=== PATIENT | female | born 1980 | race Caucasian/White ===

== ENCOUNTER 2018-02-06 08:17 | Inpatient (IN) | payer BC, OTHER ==
[2018-01-31 12:53] VITALS: BMI 43.2
[2018-02-06] MEDS ORDERED: CITRIC ACID-SODIUM CITRATE 15 ML CUP PO ONE (08:37)
[2018-02-06] MEDS: LACTATED RINGERS 1,000 ML IV SCH ×2 (09:00→15:00)
[2018-02-06 09:06] LABS: Basophils % (A) 0 %; Eosinophils # (A) 0.1 k/uL (0-0.7); Eosinophils % (A) 2 %; HCT 42.9 % (34.0-46.0); HGB 13.9 gm/dL (11.4-16.0); Lymphocytes # (A) 1.2 k/uL (1.0-4.8); Lymphocytes % (A) 18 %; MCH 30.7 pg (25.0-35.0); MCHC 32.5 g/dL (31.0-37.0); MCV 94.2 fL (80.0-100.0); Mean Platelet Volume 8.1; Monocytes # (A) 0.4 k/uL (0-1.0); Monocytes % (A) 5 %; Neutrophils # (A) 5.1 k/uL (1.3-7.7); Neutrophils % (A) 74 %; Platelet Count 211 k/uL (150-450); RBC 4.55 m/uL (3.80-5.40)
[2018-02-06] MEDS ORDERED: ceFAZolin 3 GM in SODIUM CHLORIDE 0.9% 100 ML IVPB ONE (09:28)
--- NOTE | 2018-02-06 09:38 | P.HPOB ---
History of Present Illness H&P Date: 02/06/18 Chief Complaint: Here for repeat and tubal ligation This is a 37-year-old white female 2 para 1001 EDC 02/12/2018 at 39 and one sevenths weeks' gestation. Patient presents today for repeat low transverse section, also requesting tubal ligation. She has had no HSV outbreaks on the perineal body. Fetus is been active throughout the . She denies vaginal bleeding or fluid leakage. Past medical history is significant for HSV infection, no other medical issues. Past surgical history wisdom teeth extracted in the past, section for failure to progress 2011. Current medications vitamins daily. ALLERGIES amoxicillin to which reports a rash as a teenager, no shortness of breath her airways issues. Family history significant for hypertension in the patient's father, diabetes in grandparents. Social history patient is , her 's name is Chuy. She is a former cigarette smoker, no smoking during . Occasional alcohol, she denies drug use. history blood type is B+, rubella status immune. Urine culture, gonorrhea and chlamydia cultures, hepatitis B surface antigen, HIV testing, VDRL testing all negative. Group B strep cultures negative. One-hour Glucola 95. On exam this is a pleasant white female, 5 foot 5 inches, 260 pounds, vital signs are stable and she is afebrile. The general physical exam is within normal limits. Extremities reveal no edema. Chest is clear to auscultation in all paz. Mild irregular contractions are graphing, not palpated by the patient. heart rate is consistent with reactive NST. Impression: 39 and one sevenths weeks intrauterine , advanced maternal age, history of HSV with no outbreaks currently, requesting tubal sterilization , previous section declining . Plan: We will proceed with low transverse section and tubal ligation. All questions answered. Review of Systems Constitutional: Reports as per HPI Past Medical History Past Medical History: No Reported History History of Any Multi-Drug Resistant Organisms: None Reported Past Surgical History: Section Past Anesthesia/Blood Transfusion Reactions: No Reported Reaction Past Psychological History: No Psychological Hx Reported Smoking Status: Former smoker Past Alcohol Use History: None Reported Additional Past Alcohol Use History / Comment(s): QUIT SMOKING 9 MONTHS AGO. NO ALCOHOL IN LAST NINE MONTHS Past Drug Use History: None Reported - Past Family History Mother Family Medical History: No Reported History Medications and Allergies Home Medications Medication Instructions Recorded Confirmed Type Multivitamins, Thera [Multivitamin 1 each PO DAILY 01/31/18 02/06/18 History (formulary)] Allergies Allergy/AdvReac Type Severity Reaction Status Date / Time amoxicillin Allergy Rash/Hives Verified 02/06/18 08:36 Exam - Vital Signs Vital signs: Vital Signs Temp Pulse Resp BP Pulse Ox 02/06/18 08:36 97.5 F L 69 18 139/88 99 Intake and Output 02/05/18 02/06/18 02/06/18 22:59 06:59 14:59 Other: Weight 117.934 kg See dictation under HPI please Results Result Diagrams: 02/06/18 08:52 Assessment and Plan Plan: Repeat low transverse section and tubal ligation at this time. Time with Patient: Less than 30
[2018-02-06] MEDS ORDERED: MORPHINE SULFATE (PF) 0.3 MG/0.3 ML SYR ONE (09:52)
[2018-02-06] MEDS ORDERED: OXYTOCIN 10 UNIT/ML 1 ML VIAL ONE (09:52)
[2018-02-06] MEDS ORDERED: KETOROLAC 30 MG/ML 1 ML VIAL ONE (09:52)
[2018-02-06] MEDS ORDERED: NALBUPHINE 10 MG/ML AMPUL ONE (09:52)
[2018-02-06] MEDS ORDERED: DEXAMETHASONE SOD PHOS (MDV) 100 MG/10 ML VIAL ONE (09:52)
[2018-02-06] MEDS ORDERED: ONDANSETRON 4 MG/2 ML VIAL ONE (09:52)
[2018-02-06] MEDS ORDERED: ZOLPIDEM 5 MG TAB PO PRN (10:54)
[2018-02-06] MEDS ORDERED: KETOROLAC 30 MG/ML 1 ML VIAL IVP PRN (10:54)
[2018-02-06] MEDS ORDERED: diphenhydrAMINE 50 MG/ML 1 ML VIAL IVP PRN ×2 (10:54)
[2018-02-06] MEDS ORDERED: diphenhydrAMINE 25 MG CAP PO PRN (10:54)
[2018-02-06] MEDS ORDERED: ONDANSETRON 4 MG/2 ML VIAL IVP PRN (10:54)
[2018-02-06] MEDS ORDERED: NALOXONE 0.4 MG/ML 1 ML VIAL IV PRN ×2 (10:54→11:25)
[2018-02-06] MEDS ORDERED: ACETAMINOPHEN TAB 325 MG TAB PO PRN (10:54)
[2018-02-06] MEDS ORDERED: METOCLOPRAMIDE 5 MG/ML 2 ML VIAL IVP PRN (10:54)
[2018-02-06] MEDS ORDERED: diphenhydrAMINE 50 MG CAP PO PRN (10:54)
--- NOTE | 2018-02-06 10:54 | P.OP ---
Date of Procedure: 02/06/18 Preoperative Diagnosis: 39 and one sevenths weeks intrauterine , previous section declining , undesired fertility. Postoperative Diagnosis: Same, liveborn male infant, nuchal cord 1. Procedure(s) Performed: Repeat low transverse section with tubal ligation. Anesthesia: spinal Surgeon: Cindy Tinajero Torpedo Worker #1: Alexi Thomason Estimated Blood Loss (ml): 500 IV fluids (ml): 1,000 Urine output (ml): 100 Pathology: other (Placenta) Condition: stable Disposition: PACU Operative Findings: Liveborn male , nuchal cord 1, normal-appearing tubes and ovaries. Description of Procedure: Patient is brought to the operative suite where a spinal analgesia is administered without difficulty per Dr. Riley. She's placed in the dorsal supine position with left lateral uterine displacement. Antibiotics are given. Nunez placed to direct drainage. The appropriate timeout was performed to assure proper patient and procedural identification. The abdomen is prepped and draped in usual sterile fashion. The analgesia is checked and noted to be adequate. A repeat low transverse skin incision is made in this is carried down through the subcutaneous tissue which is approximately 8 cm deep. Fascia is isolated, scored and extended bilaterally with curved Corona scissors. Peritoneum is next identified and incised, there is no bowel or bladder involvement. A few omental adhesions are taken down easily with the electrocautery. The disposable a Sue wound retractors placed into the abdomen and seated properly. Exposure is excellent. A repeat low transverse uterine incision is made. Artificial amniorrhexis reveals clear fluid. Infant is delivered in the occiput anterior position. There is a nuchal cord 1 that is reduced. The oropharynx, nasopharynx, and external nares are bulb suctioned on the perineal body. Patient is officially delivered of a liveborn male infant at 1022 hrs., with scores of 9 and 9 at one and 5 minutes respectively. Placenta is delivered manually, it is inspected and noted to be intact with trivascular cord. The uterus is externalized and massaged. It is wiped clean with a sterile sponge to avoid any retained products of conception. The edges of the incision are grasped with Barrera clamps. The uterus is closed in a single full-thickness stitch of 0 Vicryl suture for excellent reapproximation and hemostasis. Bilateral tubes and ovaries are inspected and noted to be normal. Filshie clips are placed in the isthmic portion of both tubes, with care to traverse the entire diameter of the tube into the mesal salpinx. Fimbriated ends are identified for proper placement. The abdomen is then suctioned with suction on guard. The uterus is gently placed back into the abdominal cavity. The retractor is removed. Bilateral gutters are inspected and cleaned. Again, hemostasis is excellent. Peritoneum was allowed to close by secondary intention. Fascia is closed in a running stitch of 3-0 Vicryl with over ligation in the midline. Subcutaneous tissue is irrigated and inspected, clean and dry. It is reapproximated with 3-0 Vicryl in a running stitch. 4-0 undyed Monocryl is used for final skin closure. Steri -Strips and Mastisol are applied to the wound. Nunez is noted to be draining clear urine. All sponge needle and enhancement counts are correct at the end of the procedure. Infant weighed 7 lbs. 14 oz. or 3580 g. They are requesting circumcision further infant son.
[2018-02-06] MEDS ORDERED: MORPHINE SULFATE 4 MG/ML SYRINGE IVP PRN (11:25)
[2018-02-06] MEDS ORDERED: NALBUPHINE 10 MG/ML AMPUL IV PRN (11:25)
[2018-02-06] MEDS: SENNOSIDES-DOCUSATE SODIUM 1 EACH TAB PO SCH (22:18)
[2018-02-07] MEDS: IBUPROFEN 600 MG TAB PO PRN ×4 (02:22→23:17)
--- NOTE | 2018-02-07 05:53 | P.PN ---
Progress Note - Text Progress Note Date: 02/07/18 37 yo female Status post . Post-op day #1. Patient received intrathecal Duramorph. Patient was seen today, sitting up in bed no complaints, pain VAS score 0/10, no headache, no itching, no nausea and vomiting. Assessment and plan: Doing well in general no complications from anesthesia.
[2018-02-07 07:35] LABS: Basophils % (A) 0 %; Eosinophils # (A) 0.1 k/uL (0-0.7); Eosinophils % (A) 1 %; HCT 38.8 % (34.0-46.0); HGB 12.6 gm/dL (11.4-16.0); Lymphocytes # (A) 1.8 k/uL (1.0-4.8); Lymphocytes % (A) 20 %; MCH 30.5 pg (25.0-35.0); MCHC 32.4 g/dL (31.0-37.0); MCV 93.9 fL (80.0-100.0); Mean Platelet Volume 8.7; Monocytes # (A) 0.6 k/uL (0-1.0); Monocytes % (A) 7 %; Neutrophils # (A) 6.5 k/uL (1.3-7.7); Neutrophils % (A) 71 %; Platelet Count 195 k/uL (150-450); RBC 4.13 m/uL (3.80-5.40); WBC 9.2 k/uL (3.8-10.6)
[2018-02-07] MEDS: SENNOSIDES-DOCUSATE SODIUM 1 EACH TAB PO SCH ×2 (07:49→19:44)
--- NOTE | 2018-02-07 07:54 | P.PN ---
Subjective Progress Note Date: 02/07/18 Principal diagnosis: Postoperative day #1 Objective - Vital Signs Vital signs: Vital Signs Temp 97.5 F L 02/07/18 04:00 Pulse 67 02/07/18 04:00 Resp 15 02/07/18 04:00 BP 102/70 02/07/18 04:00 Pulse Ox 96 02/06/18 19:59 Intake & Output 02/06/18 02/07/18 02/07/18 18:59 06:59 18:59 Output Total 1500 1150 Balance -1500 -1150 Weight 117.934 kg Output: Urine 1000 1150 Straight 1150 Estimated Blood Loss 500 - Constitutional General appearance: Present: average body habitus, cooperative - EENT Eyes: Present: PERRLA ENT: Present: hearing grossly normal - Neck Neck: Present: normal ROM Thyroid: bilateral: normal size - Respiratory Respiratory: bilateral: CTA - Cardiovascular Rhythm: regular - Gastrointestinal Gastrointestinal Comment(s): Incision clean and dry, intact. Steri-Strips applied. Fundus firm, midline, symmetric, 18 week size. - Integumentary Integumentary: Present: normal - Neurologic Neurologic: Present: CNII-XII intact - Musculoskeletal Musculoskeletal: Present: gait normal, strength equal bilaterally - Psychiatric Psychiatric: Present: A&O x's 3, appropriate affect, intact judgment & insight - Labs CBC & Chem 7: 02/07/18 06:54 Assessment and Plan Assessment: Doing well postoperative day #1 Plan: Continue postoperative care. Circumcision now. Anticipate likely discharge home tomorrow. Time with Patient: Less than 30
[2018-02-07 08:26] VITALS: RESP 16
[2018-02-07] MEDS: HYDROcodone/APAP 5-325MG 1 EACH TAB PO PRN (10:12)
[2018-02-07] MEDS: LACTATED RINGERS 1,000 ML IV SCH ×3 (20:37→20:38)
[2018-02-08] MEDS: SENNOSIDES-DOCUSATE SODIUM 1 EACH TAB PO SCH (08:10)
[2018-02-08] MEDS: IBUPROFEN 600 MG TAB PO PRN (08:10)
[2018-02-08 08:20] VITALS: BP 112/65; PULSE 78; TEMP 97.6
--- NOTE | 2018-02-08 08:40 | P.DS ---
Providers Date of admission: 02/06/18 08:17 Expected date of discharge: 02/08/18 Attending physician: Cindy Tinajero Primary care physician: Mingo Holt - Discharge Diagnosis(es) (1) S/P section Current Visit: Yes Status: Acute Hospital Course: The patient is a 37-year-old 2 para 1001 admitted at 39 and one sevenths weeks by good dating parameters perches admitted for repeat low transverse section and tubal ligation. Consent was signed to that effect in the office. She carries a history of HSV but has had no upper extremity the . On labor and delivery, she was taken the operating room where she underwent repeat low transverse section with intraoperative bilateral tubal occlusion using Filshie clips without difficulty. She was delivered of a viable 7 lbs. 14 oz. baby boy with Apgars of 9 at 1 minute and 9 at 5 minutes. Her postoperative course was unremarkable with vital signs or any stable and her temperature was afebrile throughout. She was deemed stable for discharge on postoperative day #2 was discharged home to follow-up in the office in 2 weeks for an incision check and 6 weeks routinely. Discharge instructions included calling for any significantly increased fever or abdominal pain, perineal complaints, incisional complaints, or anything else that concerned her. She was additionally instructed to have nothing in the vagina for at least 6 weeks time to include intercourse. She understood her instructions and agrees no heavy lifting over the same period of time. She is lastly instructed to do no driving until off of all pain medications or 2 weeks' time, whichever came first. She understood all these instructions and agrees to follow up as noted above. Discharge medications included [id number] analgesic pain medications as well as continued vitamins as she has opted to breast-feed. She additionally was provided with a prescription for Tylenol 3, 1-2 by mouth every 6 hours when necessary pain, #20 dispensed with no refills. Maternal blood type is B+ and rubella status is immune. Procedures: #1. Repeat low transverse section #2. Intraoperative bilateral tubal occlusion using Filshie clips Patient Condition at Discharge: Good Plan - Discharge Summary Discharge Rx Participant: No New Discharge Prescriptions: No Action Multivitamins, Thera [Multivitamin (formulary)] 1 each PO DAILY Discharge Medication List Multivitamins, Thera [Multivitamin (formulary)] 1 each PO DAILY 01/31/18 [ History] Follow up Appointment(s)/Referral(s): Cindy Tinajero MD [STAFF PHYSICIAN] - 2 Weeks Discharge Disposition: HOME SELF-CARE
[2018-02-08] MEDS: HYDROcodone/APAP 5-325MG 1 EACH TAB PO PRN (11:13)
== END 2018-02-08 11:40 | disposition home or self-care (01) | DRG 765 ==
LOC: 4FBP 08:17
PROVIDERS: ADMIT Obstetrics & Gynecology; ATTEND Obstetrics & Gynecology
PROC: 0UL70CZ Occlusion of Bilateral Fallopian Tubes with Extraluminal Device, Open Approach (ICD-10-PCS; principal; 2018-02-06 09:52)
PROC: 10D00Z1 Extraction of Products of Conception, Low, Open Approach (ICD-10-PCS; principal; 2018-02-06 09:52)
DX: O34.211 Maternal care for low transverse scar from previous cesarean delivery (principal); O98.32 Other infections with a predominantly sexual mode of transmission complicating childbirth; Z37.0 Single live birth; Z3A.39 39 weeks gestation of pregnancy; O69.81X0 Labor and delivery complicated by cord around neck, without compression, not applicable or unspecified; Z30.2 Encounter for sterilization; Z82.49 Family history of ischemic heart disease and other diseases of the circulatory system; Z83.3 Family history of diabetes mellitus; Z87.891 Personal history of nicotine dependence; Z88.0 Allergy status to penicillin; A60.00 Herpesviral infection of urogenital system, unspecified
CPT/HCPCS: 85025; 86850; 86900; 86901; 88307

== ENCOUNTER → 2018-09-24 | Outpatient (CLI) | payer OTHER ==
--- NOTE | 2018-09-28 13:49 | MM ---
Reason for exam: additional evaluation requested from prior study. Last mammogram was performed 2 years and 4 months ago. Physical Findings: Nurse did not find any significant physical abnormalities on exam. MG 3D Diag Mammo W/Cad JOVON Bilateral CC and MLO view(s) were taken. Prior study comparison: June 03, 2016, bilateral MG diagnostic mammo w CAD JOVON. There are scattered fibroglandular densities. The previously seen left superior asymmetry appears as fibroglandular tissue. These results were verbally communicated with the patient and result sheet given to the patient on 09/24/18. ASSESSMENT: Negative, BI-RAD 1 RECOMMENDATION: Routine screening mammogram of both breasts at age 42. Bilateral screening mammojgram at age 40 or sooner if clinically indicated
== END | disposition home or self-care (01) ==
LOC: RADMAMWWP 13:24
PROVIDERS: ATTEND Family Medicine
DX: N63.0 Unspecified lump in unspecified breast (principal)
CPT/HCPCS: 77062; 77066

== ENCOUNTER 2018-10-05 09:15 | Day surgery (SDC) | payer OTHER ==
[2018-10-04 13:49] VITALS: BMI 42.0
[~2018-10-05 09:15] MED LIST: DEXAMETHASONE SOD PHOSPHATE 10 MG/ML 1 ML VIAL IV ONE; HYDROmorphone 0.5 MG/0.5 ML SYRINGE IVP PRN; LACTATED RINGERS 1,000 ML IV SCH; MIDAZOLAM 2 MG/2 ML VIAL IV PRN; ONDANSETRON 4 MG/2 ML VIAL IVP ONE; SCOPOLAMINE 1.5MG/72HR PATCH TRANSDERM ONE; ceFAZolin IN SWFI 2 GM/20 ML SYRINGE IVP ONE
--- NOTE | 2018-10-05 09:48 | P.GSHP ---
History of Present Illness H&P Date: 10/05/18 Chief Complaint: Chronic cholecystitis 38 row female seen last in the office in July of last year. She has been having intermittent episodes of right upper quadrant pain over the last several months. She delivered a child in January of last year. Ultrasound was performed showing gallstones. No change in the color of her skin urine or stool. Past Medical History Past Medical History: No Reported History Additional Past Medical History / Comment(s): gallstones History of Any Multi-Drug Resistant Organisms: None Reported Past Surgical History: Section Past Anesthesia/Blood Transfusion Reactions: No Reported Reaction Smoking Status: Current some day smoker - Past Family History Mother Family Medical History: No Reported History Medications and Allergies Home Medications Medication Instructions Recorded Confirmed Type Multivitamins, Thera [Multivitamin 1 each PO DAILY 01/31/18 10/05/18 History (formulary)] Allergies Allergy/AdvReac Type Severity Reaction Status Date / Time amoxicillin Allergy Rash/Hives Verified 10/05/18 09:44 Surgical - Exam Physical exam: General: Well-developed, well-nourished HEENT: Normocephalic, sclerae nonicteric Abdomen: Nontender, nondistended Extremities: No edema Neuro: Alert and oriented Assessment and Plan (1) Chronic cholecystitis Narrative/Plan: Will proceed with laparoscopic cholecystectomy. Risks of bleeding, infection, bile leak, bile duct injury, retained common bile duct stone, trocar injury, conversion to an open procedure, hernia, anesthesia related complications were reviewed. The patient understands and wishes to proceed. Current Visit: Yes Status: Acute Code(s): K81.1 - CHRONIC CHOLECYSTITIS SNOMED Code(s): 27575689
[2018-10-05] MEDS ORDERED: CLINDAMYCIN 600 MG in DEXTROSE 5% IN WATER 50 ML IVPB STA ×2 (10:04)
[2018-10-05] MEDS ORDERED: BUPIVACAIN-EPI 0.25%-1:200,000 30 ML VIAL SQ ONE ×3 (10:12→11:08)
[2018-10-05] MEDS ORDERED: KETOROLAC 30 MG/ML 1 ML VIAL ONE (10:32)
[2018-10-05] MEDS ORDERED: MIDAZOLAM 2 MG/2 ML VIAL ONE (10:32)
[2018-10-05] MEDS ORDERED: fentaNYL (PF) 50 MCG/ML 2 ML AMP ONE (10:32)
[2018-10-05] MEDS ORDERED: ROCURONIUM BROMIDE 10 MG/ML 10 ML VIAL IV ONE (10:32)
[2018-10-05] MEDS ORDERED: PROPOFOL 10 MG/ML 20 ML VIAL IV ONE (10:32)
[2018-10-05] MEDS ORDERED: HEPARIN SODIUM,PORCINE 5,000 UNIT/ML 1 ML VIAL SQ ONE (10:37)
[2018-10-05] MEDS ORDERED: HEPARIN SODIUM,PORCINE 5,000 UNIT/ML 1 ML VIAL SQ STA (10:57)
[2018-10-05] MEDS ORDERED: NALOXONE 0.4 MG/ML 1 ML VIAL IV PRN (11:36)
[2018-10-05] MEDS ORDERED: HYDROcodone/APAP 5-325MG 1 EACH TAB PO PRN (11:36)
--- NOTE | 2018-10-05 11:38 | P.OP ---
Date of Procedure: 10/05/18 Procedure(s) Performed: PREOPERATIVE DIAGNOSIS: Chronic cholecystitis POSTOPERATIVE DIAGNOSIS: Same PROCEDURE: Laparoscopic cholecystectomy SURGEON: Marry EBL: Minimal see anesthesia record ANESTHESIA: Gen. COMPLICATIONS: None OPERATIVE PROCEDURE: The patient was brought and placed on the operating room table in the supine position. The patient was placed under general anesthesia at that time. The abdomen was prepped and draped in the usual sterile fashion. A small vertical infraumbilical incision was made. The fascia was grasped with the Patrick forceps. The fascia was retracted anteriorly. The Veress needle was advanced into the peritoneal cavity. The saline drop test was normal. Insufflation took place up to 15 mmHg. A 5 mm optical trocar was advanced and the peritoneal cavity. 2 additional 5 mm trochars were placed in the right upper quadrant under direct visualization. A 12 mm trocar was advanced into the epigastric incision site. The gallbladder was retracted superiorly and laterally. The peritoneum overlying the infundibulum was bluntly dissected. The patient's cystic duct was visualized. The junction between the cystic duct common and hepatic duct was identified. The cystic duct was then divided after placement of 3 12 mm clips on the patient's side and one on the specimen side. The cystic artery was identified and clipped as well. A small vessel was seen along the gallbladder fossa and clipped as well. The gallbladder was then removed from the liver bed using electrocautery. The gallbladder was then removed from the epigastric trocar site with an Endo Catch bag. The gallbladder fossa was irrigated with saline. There was no evidence of any bleeding or biliary drainage seen. The fascia at the 12 millimeter site was closed using a Raf-Latasha 0 Vicryl stitch. The trochars were then removed. The skin at all 4 sites was closed using a 4-0 Monocryl stitch. Skin glue was utilized on the incision sites. At the end of this procedure the sponge and needle counts were correct. DISPOSITION: Stable to the recovery room
[2018-10-05 11:51] VITALS: TEMP 97.5
[2018-10-05] MEDS ORDERED: ONDANSETRON 4 MG/2 ML VIAL IVP ONE (11:56)
[2018-10-05 12:22] VITALS: RESP 16
[2018-10-05] MEDS ORDERED: HYDROcodone/APAP 5-325MG 1 EACH TAB PO ONE (13:24)
[2018-10-05 13:56] VITALS: BP 121/88; PULSE 66
== END 2018-10-05 14:14 | disposition home or self-care (01) ==
LOC: OR 09:15
PROVIDERS: ATTEND Surgery
DX: K80.10 Calculus of gallbladder with chronic cholecystitis without obstruction (principal); Z88.0 Allergy status to penicillin; F17.210 Nicotine dependence, cigarettes, uncomplicated
CPT/HCPCS: 81025; 88304; 47562; J2250; J1644; J1100; J2405; J3010; J1885; J2704